=== PATIENT | female | born 1945 | race Caucasian/White ===

== ENCOUNTER 2018-12-20 11:00 | Inpatient (IN) | payer OTHER ==
[~2018-12-20] VITALS: Ht 149.9 cm; Wt 79.4 kg
[2018-12-20] MEDS ORDERED: LEVOTHYROXINE25 MCG PO (14:03)
[2018-12-28] MEDS ORDERED: OXYC1TAB9 PO (08:26)
[2018-12-28] MEDS ORDERED: INTEGRA PLUS C1 EACH PO (08:26)
[2018-12-28] MEDS ORDERED: XARELTO10 MG PO (08:26)
== END 2018-12-29 19:25 | disposition designated cancer center or children's hospital (05) | DRG 470 ==
LOC: SURH 12-25 05:55 → O/R 12-25 05:55 → SURH 12-25 07:00
PROVIDERS: ADMIT Orthopaedic Surgery Sports Medicine
PROC: 0SRD0J9 Replacement of Left Knee Joint with Synthetic Substitute, Cemented, Open Approach (ICD-10-PCS; principal; 2018-12-25 07:00)
DX: M17.12 Unilateral primary osteoarthritis, left knee (principal); I10 Essential (primary) hypertension; E03.8 Other specified hypothyroidism